=== PATIENT | female | born 1940 | race Caucasian/White ===

== ENCOUNTER → 2017-06-16 | Day surgery (SDC) | payer MEDICARE ==
[~2017-06-16] MED LIST: ACETAMINOPHEN 1000 MG/100 ML VIAL IV ONE; BUPIVACAINE/EPINEPHRINE 0.25% 50 ML VIAL ONE; ISOSULFAN BLUE 50 MG/5 ML VIAL SQ ONE; LACTATED RINGER'S 1000 ML INJ 1,000 ML ONE; MEPERIDINE HCL 50 MG/ML VIAL ONE; MIDAZOLAM HCL 2 MG/2 ML VIAL ONE; MORPHINE SULFATE 4 MG/ML INJ ONE; ONDANSETRON HCL 4 MG/2 ML VIAL IV PUSH ONE; PROPOFOL 200 MG/20 ML AMP IV ONE; ceFAZolin INJ 1,000 MG VIAL ONE
--- NOTE | 2017-06-18 11:32 | MP ---
cc: ELIEZER SILVERMAN M.D., BHUPENDRA P. M.D. NAIR, SANTOSH DATE OF SURGERY: 06/16/2017. PREOPERATIVE DIAGNOSIS: 1. Invasive ductal carcinoma left breast. 2. Atypical ductal hyperplasia right breast. ANESTHESIA: LMA. SURGEON: Eliezer Silverman MD. ACCESSIONER: ASHA Childs. ESTIMATED BLOOD LOSS: 250 mL. FLUIDS: 1000 mL crystalloid. COMPLICATIONS: None. DRAINS: Murali-Schwartz drain x2. SPECIMEN: Bilateral breasts and sentinel lymph nodes left axilla x3 to pathology. DESCRIPTION OF THE PROCEDURE IN DETAIL: The patient was taken to the department of nuclear medicine where she underwent injection with technetium 99 sulfur colloid. She was taken back to the department of nuclear medicine approximately 90 minutes later where imaging demonstrated sentinel lymph nodes. These were marked and the patient was taken back to the operating room. She was placed on the operating table in the supine position. After laryngeal mask anesthesia was achieved, the breasts were prepped and draped bilaterally including the axilla on the left. Time-out was taken confirming the correct patient site and procedure to be performed. The PSYCHIATRIC ATTENDANT was present from beginning to end of the case assisting in all portions of the procedure. It was necessary to have this individual in the room to assist in the above surgical procedure. The PSYCHIATRIC ATTENDANT's presence was necessary throughout the case for appropriate retraction, dissection, visualization and resection of the important anatomical structures during the procedure. The right breast was addressed first and a Patey type incision was made around the breast including the nipple-areolar complex. The superior and inferior skin flaps were then created and the breast was peeled off the pectoralis major muscle in the medial to lateral fashion. The breast was amputated at the edge of the pectoralis minor muscle, oriented with silk sutures and passed off the field. The wound was made hemostatic and a Murali-Schwartz drain was brought out via an inferiorly based stab incision and fixed to the skin with a 3-0 nylon suture. The wound was closed in two layers with interrupted 2-0 Vicryl suture and 5-0 PDS in a running subcuticular fashion. This was toweled off and attention was turned to the left side. A mirror image incision was made on the left breast including the nipple-areolar complex and dissection carried down to the muscle creating superior and inferior skin flaps. The breast was then dissected off the pectoralis muscle in a medial to lateral fashion. An additional inferior margin was taken as the patient had some excessive tissue creating a roll and this encompassed some breast tissue. This was submitted with the specimen. After amputating the breast off the lateral chest wall, the probe was utilized in the axilla. The activity noted above background where the radiologist had previously marked was dissected down and three lymph nodes were excised. These were submitted for specimen analysis. The axilla was reexamined and no activity above background was noted. The small amount of bleeding vessels on the pectoralis minor muscle was ligated with Vicryl suture. When this was completed, a drain was brought out via an inferiorly based stab incision and fixed to the skin with a 3-0 nylon suture. The wound was then closed in two layers with interrupted 2-0 Vicryl suture and 5-0 PDS in a running subcuticular fashion. This wound was dressed with Steri-Strips. Local anesthetic was injected into both drains and that was left indwelling. Bloody drainage in the right drain raised significant concern about some oozing that had occurred while performing the left mastectomy. The wound was opened and explored and a small bleeding point was noted on the edge of the pectoralis minor muscle. This was cauterized and the wound irrigated copiously. No further bleeding was noted and when this was completed, the wound was re-closed with interrupted 2-0 Vicryl suture and 5-0 PDS in a running subcuticular fashion. This wound was dressed with Steri-Strips as well. Additional Marcaine was placed into the drain. The patient was extubated and taken back to the recovery room in stable condition. She tolerated the procedure well. MD ELIJAH Mcclure/EMPERATRIZ /2:13 PM /11:15 AM
== END | disposition home or self-care (01) ==
LOC: ESDC 06:17
PROVIDERS: ATTEND Surgery Trauma Surgery
DX: D05.12 Intraductal carcinoma in situ of left breast (principal); N60.91 Unspecified benign mammary dysplasia of right breast
CPT/HCPCS: 00400; 01610; 19303; 38525; 88307; J0131; J0690; J2175; J2250; J2270; J2405; J3010; J7120; 88309; Q9968